=== PATIENT | male | born 1945 | race African-American/Black ===

== ENCOUNTER 2016-07-10 00:29 | Inpatient (IN) ==
--- NOTE | 2016-07-10 00:44 | Emergency Department Note ---
Arrival - Arrival Chief Complaint: Weakness Stated Complaint: weakness/ sob ED Nursing Triage Note: pt to [facility] via [facility] stretcher. pt c.o generalized weakness since 1600 yesterday. Mode of Arrival: Stretcher Time Seen by Provider: 07/10/16 00:42 - History of Present Illness HPI Narrative: Patient complains of weakness onset 1600 hrs. yesterday. He states that he cannot stand up or walk due to his weakness. He denies any dyspnea on exertion or chest pain. His sugars have been in the 300 range. The patient is diabetic. He denies any nausea, vomiting, chills, hematuria, hematemesis, or hematochezia. The patient has had no fever. He just feels weak. Allergies/Adverse Reactions: Allergies Allergy/AdvReac Type Severity Reaction Status Date / Time iodine Allergy DIFFICULTY Verified 07/10/16 00:38 SWALLOWING Shellfish Allergy DIFFICULTY Verified 07/10/16 00:38 SWALLOWING Review of System - Review of System 12 point system: reviewed and no additional remarkable complaints except as stated Medical,Surgical,& Family Hx - Medical History Cardio: History of: Hypertension Endocrine: History of: Diabetes Mellitus (NIDDM) Other: [facility]: [facility] - Social History Smoking Status: Never smoker Frequency of Alcohol Use: None Type of Drug Use: None Exam Physical Examination: General: Patient is well-developed and well-nourished with no acute distress noted. HEENT: The extraocular muscles are intact. Oropharynx is moist. There is no erythema or exudate. The tympanic membranes are shiny bilaterally. Neck: There is no adenopathy. Full range of motion is noted without pain. The trachea is midline. No JVD is present. Lungs: There is normal excursion of the chest with the lungs sounding clear bilaterally. No subcostal retractions are present. There is no point tenderness present. Heart: The heart has a regular rate and rhythm with no gallops or murmurs. Abdomen: The abdomen is nontender and nondistended with no rebound, guarding, or masses. Bowel sounds are normal. Back: The back demonstrates a normal appearance with no evidence of trauma. Genitourinary: Not examined. Extremities: The extremities demonstrate no clubbing, cyanosis, or edema. The visualized range of motion is normal. They appear atraumatic. Neuro: Cranial nerves II through XII are checked and intact. There is no focal motor or sensory deficit seen in the extremities. Skin: Skin is warm and dry with no evidence of rash. Vital Signs: Vital Signs Temperature 98.3 F 07/10/16 00:29 Pulse Rate 117 H 07/10/16 00:29 Respiratory Rate 20 07/10/16 00:47 Blood Pressure 120/58 07/10/16 00:29 Course - Consultations Consultation #1: Dr. Renny Mariano will evaluate and admit the patient. Time: 01:41 Results - Labs CBC & BMP: 07/10/16 00:40 07/10/16 00:40 Lab Results: I have reviewed the patients labs Labs: Lab Results WBC 18.1 T/CUMM (4-12) H 07/10/16 00:40 RBC 3.00 MC/CUMM (3.8-5.5) L 07/10/16 00:40 Hgb 9.7 GM/DL (14.0-18.0) L 07/10/16 00:40 Hct 30.6 VOL% (42.0-52.0) L 07/10/16 00:40 MCV 102.0 FL (87-102) 07/10/16 00:40 MCH 32 PG (27-34) 07/10/16 00:40 MCHC 31.7 GM/DL (32-36) L 07/10/16 00:40 RDW 12.5 % (9.3-17.3) 07/10/16 00:40 Plt Count 178 T/CUMM (130-400) 07/10/16 00:40 MPV 10.4 FL (9.6-12.0) 07/10/16 00:40 Neut % (Auto) 90.3 % (38.7-73.9) H 07/10/16 00:40 Lymph % (Auto) 2.9 % (21.2-54.2) L 07/10/16 00:40 [place] % (Auto) 5.2 % (1.7-12.7) 07/10/16 00:40 Eos % (Auto) 0.2 % (0.00-10.9) 07/10/16 00:40 Baso % (Auto) 0.2 % (0.0-0.8) 07/10/16 00:40 Neut # (Auto) 16.4 10*3/uL (1.4-7.4) H 07/10/16 00:40 Lymph # (Auto) 0.5 10*3/uL (1.4-4.0) L 07/10/16 00:40 [place] # (Auto) 0.9 10*3/uL (0.11-0.8) H 07/10/16 00:40 Eos # (Auto) 0.0 10*3/uL (0.0-0.87) 07/10/16 00:40 Baso # (Auto) 0.0 10*3/uL (0.0-0.2) 07/10/16 00:40 Immature Gran % 1.2 % 07/10/16 00:40 Nucleated RBC % 0.0 /100WBC 07/10/16 00:40 Immature Gran # 0.21 # 07/10/16 00:40 Nucleated RBCs # 0.00 10*3/uL 07/10/16 00:40 Sodium 145 MMOL/L (136-145) 07/10/16 00:40 Potassium 3.8 MMOL/L (3.5-5.1) 07/10/16 00:40 Chloride 107 MMOL/L (98-107) 07/10/16 00:40 Carbon Dioxide 26 MMOL/L (21-32) 07/10/16 00:40 Anion Gap 15.8 MMOL/L (5.0-15.0) H 07/10/16 00:40 BUN 16 MG/DL (7-18) 07/10/16 00:40 Creatinine 1.30 MG/DL (0.70-1.30) 07/10/16 00:40 GFR Calculation 81 ML/MIN 07/10/16 00:40 BUN/Creatinine Ratio 12.00 RATIO (6.00-20.00) 07/10/16 00:40 Glucose 321 MG/DL (74-106) H 07/10/16 00:40 Calculated Osmolality 300.7 MOS/KG (273-304) 07/10/16 00:40 Calcium 8.1 MG/DL (8.5-10.1) L 07/10/16 00:40 Magnesium 1.2 MG/DL (1.8-2.4) L 07/10/16 00:40 - Diagnostic Findings Procedure: Chest x-ray: image reviewed by me (Left lower lobe pneumonia) Disposition Clinical Impression: Left lower lobe pneumonia Case discussed with: patient, patient's family Disposition: Still a Patient Condition: Stable Time of Disposition: 01:41
[2016-07-10 01:29] LABS: Calcium 8.1 MG/DL (8.5-10.1); Magnesium 1.2 MG/DL (1.8-2.4); Osmolality,Calculated 300.7 MOS/KG (273-304); Potassium 3.8 MMOL/L (3.5-5.1)
[2016-07-10 01:35] LABS: Basophils % 0.2 % (0.0-0.8); Eosinophils % 0.2 % (0.00-10.9); Hematocrit 30.6 VOL% (42.0-52.0); Hemoglobin 9.7 GM/DL (14.0-18.0); Immature Granulocytes % 1.2 %; Immature Granulocytes Absolute 0.21 #; Lymphocytes # 0.5 10*3/uL (1.4-4.0); Lymphocytes % 2.9 % (21.2-54.2); Mean Corpuscular HGB Conc 31.7 GM/DL (32-36); Mean Corpuscular Hemoglobin 32 PG (27-34); Mean Platelet Volume 10.4 FL (9.6-12.0); Monocytes # 0.9 10*3/uL (0.11-0.8); Monocytes % 5.2 % (1.7-12.7); Neutrophils # 16.4 10*3/uL (1.4-7.4); Neutrophils % 90.3 % (38.7-73.9); Platelet Count 178 T/CUMM (130-400); Red Cell Distribution Width 12.5 % (9.3-17.3); White Blood Count 18.1 T/CUMM (4-12)
[2016-07-10] MEDS ORDERED: ACETAMINOPHEN 325 MG TABLET PO PRN (01:39)
[2016-07-10] MEDS ORDERED: ONDANSETRON 4 MG/2 ML VIAL IV PRN (01:39)
[2016-07-10] MEDS ORDERED: ZALEPLON 5 MG CAPSULE PO PRN (01:39)
[2016-07-10] MEDS ORDERED: ALBUTEROL/IPRATROPIUM 3 ML NEB RESP TX PRN (01:39)
[2016-07-10] MEDS ORDERED: DOCUSATE SODIUM 100 MG CAPSULE PO PRN (01:39)
--- NOTE | 2016-07-10 01:50 | Hospitalist History & Physical ---
Assessment and Plan (1) Left lower lobe pneumonia Status: Acute Assessment and plan: Admitted to the hospitalist service as an inpatient. Start Levaquin and duo nebs. Follow-up sputum and blood cultures. Current Visit: Yes Qualifiers: Pneumonia type: due to unspecified organism Qualified Code(s): J18.1 - Lobar pneumonia, unspecified organism (2) HTN (hypertension) Status: Acute Current Visit: Yes (3) DM2 (diabetes mellitus, type 2) Status: Acute Assessment and plan: Sliding scale insulin with Accu-Cheks. Continue home medications. Current Visit: Yes (4) Hypomagnesemia Status: Acute Assessment and plan: Oral and IV replacement ordered Current Visit: Yes History of Present Illness Chief complaint: weakness, cough History of present illness: Mr. Wilson is a 70 year old male with complains of weakness onset 1600 hrs. yesterday. He states that he cannot stand up or walk due to his weakness. He denies any dyspnea on exertion or chest pain. His sugars have been in the 300 range. The patient is diabetic. He denies any nausea, vomiting, chills, hematuria, hematemesis, or hematochezia. The patient has had no fever. He reports cold sx's for approx 1 week. He has had a cough without sputum production. He sees Dr. Cleary for PCP- not on dialysis. He has audible rhonchi. His daughter is with him in the ER. Allergies Allergy/AdvReac Type Severity Reaction Status Date / Time iodine Allergy DIFFICULTY Verified 07/10/16 00:38 SWALLOWING Shellfish Allergy DIFFICULTY Verified 07/10/16 00:38 SWALLOWING Medical,Surgical,& Family Hx - Medical History Cardio: History of: Hypertension Endocrine: History of: Diabetes Mellitus (NIDDM) Other: History of: Cancer (lymphoma , in [facility]) - Family History Family History: Reports;: Family Diabetes, Family Hypertension - Social History Smoking Status: Never smoker Frequency of Alcohol Use: None Type of Drug Use: None Lives With:: Alone Functional capacity: independent ambulation 12 point system: reviewed and no additional remarkable complaints except as stated - Constitutional Constitutional: Present: fatigue, lethargy, malaise - Respiratory Respiratory: Present: cough Exam - Constitutional Vitals: Period Temp Pulse Resp BP Sys/Holland Pulse Ox Last 24 Hr 98.3 F 117 20-22 120/58 General appearance: mild distress Exam: Constitutional System: Mild distress. No tremulousness. Ill-appearing Head: Normocephalic, atraumatic. Ears, Nose and Throat System: No pain or tenderness. No epistaxis or discharge Eyes System: Pupils equal, round, and reactive. Extraocular muscles intact. Neck: Supple, without adenopathy, No jugular venous distention. No thyromegaly, neck mass, or prior surgery apparent. Respiratory System: Chest with rhonchi left greater than right. Cardiovascular System: Heart with tachycardic rate and normal rhythm. No murmur. GI System: Abdomen soft, nontender. Normo active bowel sounds present. Musculoskeletal System: limbs with no pedal edema. Full distal pulses. Neurological System: No discernable sensory deficit. No aphasia Psychiatric System: Conversation is rational Results - Labs CBC & BMP: 07/10/16 00:40 07/10/16 00:40 Lab Results: I have reviewed the past 24 hour labs - Diagnostic Findings Procedure: CT - chest: image reviewed by me, report reviewed by me
[2016-07-10 02:12] LABS: Band Neutrophils 5 % (0-10); Lymphocytes 1 % (20-55); Platelet Estimate Normal; Segmented Neutrophils 88 % (50-85); Total Cells Counted 100
[2016-07-10] MEDS ORDERED: DEXTROSE 50% 25 GM/50 ML VIAL IV PRN (02:59)
[2016-07-10] MEDS ORDERED: MAGNESIUM SULF RIDER 4 GM in PREMIX 1 EACH IV ONE (02:59)
[2016-07-10] MEDS ORDERED: GLUCAGON 1 MG VIAL IM PRN (02:59)
[2016-07-10] MEDS: LEVOFLOXACIN INJ 750 MG in PREMIX 1 EACH IV SCH (03:42)
[2016-07-10 05:15] LABS: Basophils % 0.1 % (0.0-0.8); Hematocrit 27.9 VOL% (42.0-52.0); Hemoglobin 8.9 GM/DL (14.0-18.0); Immature Granulocytes % 1.1 %; Immature Granulocytes Absolute 0.23 #; Lymphocytes # 0.8 10*3/uL (1.4-4.0); Lymphocytes % 3.7 % (21.2-54.2); Mean Corpuscular HGB Conc 31.9 GM/DL (32-36); Mean Corpuscular Hemoglobin 32 PG (27-34); Mean Corpuscular Volume 100.7 FL (87-102); Mean Platelet Volume 10.5 FL (9.6-12.0); Monocytes # 1.1 10*3/uL (0.11-0.8); Monocytes % 5.2 % (1.7-12.7); Neutrophils # 18.8 10*3/uL (1.4-7.4); Neutrophils % 89.9 % (38.7-73.9); Platelet Count 190 T/CUMM (130-400); Red Blood Count 2.77 MC/CUMM (3.8-5.5); Red Cell Distribution Width 12.7 % (9.3-17.3); White Blood Count 20.9 T/CUMM (4-12)
[2016-07-10 05:42] LABS: Band Neutrophils 1 % (0-10); Hypochromasia 1+; Lymphocytes 3 % (20-55); Ovalocytes Slight; Platelet Estimate Normal; Segmented Neutrophils 94 % (50-85); Total Cells Counted 100
--- NOTE | 2016-07-10 07:15 | XRay Report ---
Portable chest Date: 07/10/2016 Clinical history: Chest pain, shortness of breath Comparison: 05/30/2014 Technique: Portable AP sitting chest Findings: The heart is slightly larger in size with stable left subclavian venous access catheter. Persistent minimal relative elevation of the right hemidiaphragm with progressive atelectasis/infiltration especially at the left lung base. Stable mediastinum with degenerative changes. Impression: Progressive atelectasis/infiltration especially at the left lung base. Persistent minimal relative elevation of the right hemidiaphragm. Follow-up chest x-ray recommended to document clearing. PROCEDURE INTERPRETED AT [facility] DEPARTMENT OF RADIOLOGY Final Report Signed by: Dr. Sue Hernandez
[2016-07-10] MEDS: INSULIN LISPRO 100 UNIT/ML SUBCUT SCH ×5 (08:35→21:27)
[2016-07-10] MEDS ORDERED: PANTOPRAZOLE 40 MG TABLET PO SCH (09:00)
[2016-07-10] MEDS: glipiZIDE 10 MG TABLET PO SCH ×2 (09:04→21:26)
[2016-07-10] MEDS: PANTOPRAZOLE 40 MG TABLET PO SCH (09:05)
[2016-07-10] MEDS: MONTELUKAST 10 MG TABLET PO SCH (09:05)
[2016-07-10] MEDS: ENOXAPARIN 40 MG/0.4 ML SYRINGE SUBCUT SCH (09:05)
[2016-07-10] MEDS: MAGNESIUM OXIDE 400 MG TABLET PO SCH ×3 (09:05→21:26)
[2016-07-10] MEDS: GABAPENTIN 300 MG CAPSULE PO SCH ×3 (09:05→21:25)
[2016-07-10] MEDS: CARVEDILOL 25 MG TABLET PO SCH ×2 (09:05→21:25)
[2016-07-10] MEDS: ISOSORBIDE MONONITRATE 30 MG TABLET PO SCH (09:05)
[2016-07-10] MEDS: guaiFENesin/DM ER 600-30 MG TABLET PO PRN (18:36)
[2016-07-10] MEDS: PRAVASTATIN 20 MG TABLET PO SCH (21:26)
[2016-07-10] MEDS: rOPINIRole 1 MG TABLET PO SCH (21:26)
[2016-07-11] MEDS: ENOXAPARIN 40 MG/0.4 ML SYRINGE SUBCUT SCH (08:46)
[2016-07-11] MEDS: LEVOFLOXACIN INJ 750 MG in PREMIX 1 EACH IV SCH (08:47)
[2016-07-11] MEDS: PANTOPRAZOLE 40 MG TABLET PO SCH (08:47)
[2016-07-11] MEDS: INSULIN LISPRO 100 UNIT/ML SUBCUT SCH ×4 (08:47→21:49)
[2016-07-11] MEDS: GABAPENTIN 300 MG CAPSULE PO SCH ×3 (08:48→21:47)
[2016-07-11] MEDS: guaiFENesin/DM ER 600-30 MG TABLET PO PRN (08:48)
[2016-07-11] MEDS: CARVEDILOL 25 MG TABLET PO SCH ×2 (08:48→21:47)
[2016-07-11] MEDS: MAGNESIUM OXIDE 400 MG TABLET PO SCH ×3 (08:48→21:47)
[2016-07-11] MEDS: ISOSORBIDE MONONITRATE 30 MG TABLET PO SCH (08:48)
[2016-07-11] MEDS: MONTELUKAST 10 MG TABLET PO SCH (08:48)
[2016-07-11] MEDS: glipiZIDE 10 MG TABLET PO SCH ×2 (08:48→21:47)
--- NOTE | 2016-07-11 08:54 | XRay Report ---
XR chest 2V Date: 07/11/2016 4:00 AM History: Shortness of breath, pneumonia Comparison: 07/10/2016 Technique: PA and lateral chest Findings: The heart is normal in size with stable left subclavian venous access catheter. Progressive atelectasis/infiltration right lower lung zone with relative elevation of the right hemidiaphragm. Reduced atelectasis/infiltration at left lung base. Stable mediastinum and osseous structures. Impression: Progressive atelectasis/infiltration in the right mid to lower lung zone with relative elevation of the right hemidiaphragm. Reduced atelectasis/infiltration at left lung base. PROCEDURE INTERPRETED AT [facility] DEPARTMENT OF RADIOLOGY Final Report Signed by: Dr. Sue Hernandez
[2016-07-11 15:23] LABS: Free T4 (Free Thyroxine) 1.33 NG/DL (0.76-1.46); Thyroid Stimulating Hormone 0.639 uIU/ml (0.358-3.74)
[2016-07-11] MEDS ORDERED: MAGNESIUM SULF RIDER 2 GM in PREMIX 1 EACH IV PRN (15:33)
[2016-07-11] MEDS ORDERED: MAGNESIUM SULF RIDER 4 GM in PREMIX 1 EACH IV PRN (15:33)
--- NOTE | 2016-07-11 15:34 | Hospitalist Progress Note ---
<Diana Coreas - Last Filed: 07/11/16 15:31> Assessment and Plan - Time spent with patient Time spent with patient: Less than 30 minutes (1) Left lower lobe pneumonia Status: Acute Assessment and plan: 07/11/16 xr showing progressive atelectasis in right lung w elevation of the right hemidiaphragm and reduced atelectasis in the left. pt is on levaquin and breathing treatments. Current Visit: Yes Qualifiers: Pneumonia type: due to unspecified organism Qualified Code(s): J18.1 - Lobar pneumonia, unspecified organism (2) HTN (hypertension) Status: Acute Assessment and plan: BP running in high 90s and low 100s. will cont to monitor. Current Visit: Yes (3) DM2 (diabetes mellitus, type 2) Status: Acute Assessment and plan: blood sugars running 283-304 and his HgbA1C was greater than 9. will need to address his home meds. will discuss this w dr Miller. cont SSI Current Visit: Yes (4) Hypomagnesemia Status: Acute Assessment and plan: pt on po mag daily started in ED. will recheck labs in am. mag replacement protocol also in place. Current Visit: Yes Hospitalist: Subjective Interval history: pt feels better today. no fevers. eating well. denies cough since last night. pt states he has seen CAYLA roman for dr gonzalez at one time. Exam - Constitutional Vitals: Period Temp Pulse Resp BP Sys/Holland Pulse Ox Last 24 Hr 96.9 F-99 F 90-100 20-24 90-106/51-60 91-100 Exam: 70AAM, NAD, alert and oriented chest clear cv rrr abd soft, nt ext no edema Results - Labs CBC & BMP: 07/10/16 04:28 07/10/16 00:40 Lab Results: I have reviewed the past 24 hour labs - Diagnostic Findings Procedure: Chest x-ray: report reviewed by me (progression in right, resolution to left) Quality Measures - Stroke Symptom Onset Unknown: No <Kat Miller - Last Filed: 07/11/16 15:45> Hospitalist: Subjective Interval history: Patient apparently has a history of NHL in 5year-remission.We will hold Isosorbide for now due to borderline bp, get Lipids, cultures, A1C levels, TSH and start Lantus 10units qhs and follow response Exam - Constitutional Vitals: Period Temp Pulse Resp BP Sys/Holland Pulse Ox Last 24 Hr 96.9 F-99 F 90-100 20-24 90-106/51-60 91-100 Results - Labs CBC & BMP: 07/10/16 04:28 07/10/16 00:40
[2016-07-11] MEDS: CLINDAMYCIN INJ 300 MG in PREMIX 1 EACH IV SCH ×2 (16:23→21:50)
--- NOTE | 2016-07-11 16:24 | Pulmonology Consult Note ---
History of Present Illness Chief complaint: Pneumonia History of present illness: Walt Mary, ANP-BC, GNP-BC, acting as scribe for Dr. Mikey Oliva Mr. Wilson is a 70-year-old -[place] male who we have been asked to see in pulmonary consultation for evaluation and treatment. The request for consultation was made by Dr. Miller. This patient is followed from a primary care standpoint by Dr. Cleary. He has been seen by SHAHRAM Pillai, nurse practitioner, on one occasion 06/12/[address] Cleary for cough. Patient states he was in his usual state of health until Friday (2 days ago). At that time he had acute onset of increased shortness of breath and productive cough. He had associated chills but denies any known fever. He presented to the emergency room for evaluation and was found to have an acute left lower lung infiltrate compatible with pneumonia. He was subsequently admitted to the hospitalist services. He denies any cardiac angina or palpitations. No change in bowel or bladder habits. No dysphasia or reflux. His cough improved with the addition of Singulair. It was felt that his cough was a wheeze equivalent. No TIA symptoms or syncope. No bleeding from any site. All other systems were reviewed and were negative. Allergies: Iodine, shellfish Past medical history: Lymphoma (in remission). Chronic renal failure (stage III , mild). Diabetes mellitus. Restless leg syndrome. Hypertension. Family history: Positive for diabetes and hypertension Social history: He is . He is a lifetime non-smoker. Has a 12th grade education. Surgical history: Noncontributory Past procedures: Pulmonary function test on 06/12/[address] Oliva showed oxygen saturation 98% on room air, small airways disease, no clear-cut improvement after inhaled bronchodilators, suggested severe restrictive disease , DLCO 45, DL/VA 96, and severe decrease in maximum voluntary ventilation. Chest x-ray. Done 07/11/2016. My interpretation. The heart size is top normal. Pulmonary arteries are top normal. Mediastinum is not enlarged. There is no hilar adenopathy. There is an acute left lower lung infiltrate compatible with pneumonia as well as atelectasis on the left and the right. Microbiology: Influenza screen was negative. Blood cultures are negative at day 1. Laboratory: White count has risen to 20,900 with 89.9% segs, 3.7% lymphs, 5.2% monos; H&H 8.9/27.9 with normal indices and normal red blood cell distribution width; platelet count 190,000; creatinine 1.30, BUN 16, sodium 145, potassium 3.8, magnesium 1.3 (hypomagnesemia), calcium 8.1 (hypocalcemia), BNP 44, hemoglobin A1c elevated at 9.7% showing poor control of his diabetes mellitus; TSH and free T4 normal at 0.639 1.33 respectively. Home Medications Medication Instructions Recorded Confirmed Type Carvedilol [Carvedilol] 25 mg PO BID 07/10/16 07/10/16 History Gabapentin Cap/Tab [Neurontin 300 mg PO TID 07/10/16 07/10/16 History Cap/Tab] Isosorbide Mononitrate [Imdur] 30 mg PO DAILY 07/10/16 07/10/16 History Magnesium Oxide 400 mg PO TID 07/10/16 07/10/16 History Montelukast Tab [Singulair Tab] 10 mg PO DAILY 07/10/16 07/10/16 History Omeprazole [Omeprazole] 20 mg PO TID W/MEALS 07/10/16 07/10/16 History Pioglitazone HCl 15 mg PO DAILY 07/10/16 07/10/16 History Pravastatin [Pravachol] 20 mg PO BEDTIME 07/10/16 07/10/16 History Ropinirole HCl [Ropinirole HCl] 2 mg PO BEDTIME 07/10/16 07/10/16 History glipiZIDE [Glipizide] 15 mg PO BID 07/10/16 07/10/16 History Allergies Allergy/AdvReac Type Severity Reaction Status Date / Time iodine Allergy DIFFICULTY Verified 07/10/16 00:38 SWALLOWING Shellfish Allergy DIFFICULTY Verified 07/10/16 00:38 SWALLOWING Exam (Pulmonay) H&P - Constitutional Vitals: Period Temp Pulse Resp BP Sys/Holland Pulse Ox Last 24 Hr 96.9 F-99 F 90-100 20-24 92-106/51-60 91-98 Exam: Psych: Oriented x 3; a pleasant and cooperative patient who is acutely ill appearing HEENT: Pupils, irises, sclera, conjunctiva, and eyelids are normal. The face is symmetrical without rash or masses. Lips, tongue, buccal mucosa, soft and hard palates, and pharynx are WNL Neck: Symmetrical. Thyroid was not palpated. Lymphatics: No submandibular, cervical, or supraclavicular adenopathy Chest: Symmetrical with bilateral rhonchi left greater than right CV: Regular without murmur, rub, or gallop Arterial: Carotids with a good upstroke. There is no bruit. Upper extremity pulses are palpable. Lower extremity pulses are non-palpable, but I see no evidence of ischemia. Venous: Exam of the neck, upper, and lower extremities is normal Abd: No appreciable organomegaly, masses, tenderness, or bruit; Bowel sounds are positive 4; The aorta was not palpated /Rectal: Deferred Extremities: No clubbing, cyanosis, edema, or obvious DVT; bilateral MARILYN hose are in use Skin: No cancerous or infectious lesions of the exposed, examined skin; the perineal area was not examined M/S: Age appropriate loss of the normal curvature of the cervical, thoracic, and lumbar spine Neurological: Cranial nerves are intact, Long tract motor function is intact; Sensory exam was not done; gait was not tested. The remainder of the exam was noncontributory. Impression: #1: Acute left lower lung infiltrate compatible with pneumonia and probable right lower lung infiltrate as well with associated atelectasis #2: History of lymphoma. Now in remission. #3: Hypomagnesemia #4: Hypocalcemia #5: Hypertension #6: Diabetes mellitus #7: History of wheeze equivalent cough #8: Chronic renal failure #9: See past history Plan: #1: Agree with Levaquin. Will add Cleocin pending any new information becomes available. Note, the patient did have a low-grade temperature this morning. #2: Check cold agglutinins #3: Check Legionella #4: Check sputum for Gram stain, culture, and sensitivity #5: Inhalation therapy with DuoNeb's 4 times daily and as needed #6: Mucinex 600 mg p.o. twice daily #7: See orders We appreciate this consult and will follow along with you. Medical,Surgical,& Family Hx - Medical History Cardio: History of: Hypertension HEENT: History of: Eye Problem (wears glasses) Endocrine: History of: Diabetes Mellitus (NIDDM) Respiratory: History of: Pneumonia Gastrointestinal: History of: GERD Other: History of: Cancer (lymphoma , in [facility]) - Surgical History HEENT Surgeries: Patient denies: Eye Surgery, Tonsilectomy & Adenoidectomy Abdominal Surgeries: Surgical HX of: Colonoscopy, EGD - Family History Family History: Reports;: Family Diabetes, Family Hypertension - Social History Smoking Status: Never smoker Frequency of Alcohol Use: None Type of Drug Use: None Results - Labs CBC & BMP: 07/10/16 04:28 07/10/16 00:40 Quality Measures - Stroke Symptom Onset Unknown: No
[2016-07-11] MEDS: ALBUTEROL/IPRATROPIUM 3 ML NEB RESP TX SCH ×2 (19:20→23:44)
[2016-07-11] MEDS: PRAVASTATIN 20 MG TABLET PO SCH (21:47)
[2016-07-11] MEDS: rOPINIRole 1 MG TABLET PO SCH (21:47)
[2016-07-11] MEDS: INSULIN GLARGINE 100 UNIT/ML SUBCUT SCH (21:49)
[2016-07-12] MEDS: ALBUTEROL/IPRATROPIUM 3 ML NEB RESP TX SCH ×6 (03:20→23:35)
[2016-07-12 03:36] LABS: Apearance,Urine CLEAR (Clear); Bilirubin,Urine Negative (Negative); Blood, Urine Negative (Negative); Glucose,Urine (UA) >=500 mg/dL (Negative); Ketones,Urine Negative (Negative); Mucus,Urine Occasional /LPF (Occasional); Nitrite,Urine Negative (Negative); Protein,Urine Negative; Urine Color Yellow (Yellow); Urine Specific Gravity 1.014 (1.001-1.035); Urine Urobilinogen < 2.0 EU/DL (0.2-1.0); WBC,Urine <1 /HPF (0-6)
[2016-07-12] MEDS: CLINDAMYCIN INJ 300 MG in PREMIX 1 EACH IV SCH ×4 (05:28→21:31)
[2016-07-12 06:57] LABS: Basophils % 0.1 % (0.0-0.8); Eosinophils # 0.2 10*3/uL (0.0-0.87); Eosinophils % 1.6 % (0.00-10.9); Hematocrit 25.6 VOL% (42.0-52.0); Hemoglobin 7.9 GM/DL (14.0-18.0); Immature Granulocytes % 0.7 %; Immature Granulocytes Absolute 0.07 #; Lymphocytes # 1.3 10*3/uL (1.4-4.0); Lymphocytes % 12.4 % (21.2-54.2); Mean Corpuscular HGB Conc 30.9 GM/DL (32-36); Mean Corpuscular Hemoglobin 32 PG (27-34); Mean Corpuscular Volume 102.4 FL (87-102); Mean Platelet Volume 10.5 FL (9.6-12.0); Monocytes # 0.6 10*3/uL (0.11-0.8); Monocytes % 5.4 % (1.7-12.7); Neutrophils # 8.3 10*3/uL (1.4-7.4); Neutrophils % 79.8 % (38.7-73.9); Platelet Count 176 T/CUMM (130-400); Red Cell Distribution Width 12.4 % (9.3-17.3); White Blood Count 10.4 T/CUMM (4-12)
[2016-07-12 07:28] LABS: Calcium 7.8 MG/DL (8.5-10.1); Magnesium 1.9 MG/DL (1.8-2.4); Osmolality,Calculated 297.4 MOS/KG (273-304); Potassium 4.4 MMOL/L (3.5-5.1); Risk Ratio 4.1
[2016-07-12] MEDS: INSULIN LISPRO 100 UNIT/ML SUBCUT SCH ×4 (08:32→21:31)
[2016-07-12] MEDS ORDERED: ISOSORBIDE MONONITRATE 30 MG TABLET PO SCH (09:00)
[2016-07-12] MEDS: GABAPENTIN 300 MG CAPSULE PO SCH ×3 (09:09→21:37)
[2016-07-12] MEDS: MAGNESIUM OXIDE 400 MG TABLET PO SCH ×3 (09:09→21:30)
[2016-07-12] MEDS: CARVEDILOL 25 MG TABLET PO SCH ×2 (09:09→21:30)
[2016-07-12] MEDS: glipiZIDE 10 MG TABLET PO SCH ×2 (09:10→21:30)
[2016-07-12] MEDS: PANTOPRAZOLE 40 MG TABLET PO SCH (09:10)
[2016-07-12] MEDS: MONTELUKAST 10 MG TABLET PO SCH (09:10)
[2016-07-12] MEDS: LEVOFLOXACIN INJ 750 MG in PREMIX 1 EACH IV SCH (09:11)
[2016-07-12] MEDS: ENOXAPARIN 40 MG/0.4 ML SYRINGE SUBCUT SCH (09:11)
--- NOTE | 2016-07-12 10:51 | Pulmonology Progress Note ---
Pulmonary - PN: Subj Interval history: This is a 70-year-old black male who was seen in pulmonary consultation on 2016. Impressions are. #1: Acute left lower lung infiltrate compatible with pneumonia and probable right lower lung infiltrate as well with associated atelectasis #2: History of lymphoma. Now in remission. #3: Hypomagnesemia #4: Hypocalcemia #5: Hypertension #6: Diabetes mellitus #7: History of wheeze equivalent cough #8: Chronic renal failure #9: See past history 07/12/2016. Today's chest x-ray shows that the patient has a bibasilar infiltrate. He says his breathing is markedly improved. Cold agglutinins are negative. No other tests concerning infection have been reported. Electrolytes normal. Creatinine is 1.3 with a BUN of 17. Urine shows no evidence of infection. White blood cell count is dropped from 20,900-10,400 with 80 segs and 12 lymphocytes. H&H is 7.9/25.6. Platelets are 176,000. Physical exam. Vital signs. See below. Had fever last night. Psychiatric. Oriented 3 Neurologic. Cranial nerves are intact. Patient moves all fours. Chest. Slight large airway congestion. No wheezing Heart. No gallop Abdomen. Nondistended. Positive bowel sounds Lower extremities. Chronic venous stasis changes with resolving edema. No evidence of deep venous thrombophlebitis Neck. Symmetrical. No meningismus. Lymphatics. No submandibular cervical supraclavicular or epitrochlear adenopathy. The remainder the physical exam is negative Plan: #1: 07/11/2016. Agree with Levaquin. Will add Cleocin pending any new information becomes available. Note, the patient did have a low-grade temperature this morning. #2: Check cold agglutinins. 07/12/2016, negative #3: Check Legionella #4: Check sputum for Gram stain, culture, and sensitivity #5: Inhalation therapy with DuoNeb's 4 times daily and as needed #6: Mucinex 600 mg p.o. twice daily #7: See orders 8. 07/12/2016. Follow-up chest x-ray on Friday. See orders. See above. Exam (Progress Note) - Constitutional Vitals: Period Temp Pulse Resp BP Sys/Holland Pulse Ox Last 24 Hr 97.4 F-100.2 F 81-96 16- 100-117/54-65 90-99 Results - Labs CBC & BMP: 07/12/16 05:17 07/12/16 05:17
--- NOTE | 2016-07-12 18:06 | Hospitalist Progress Note ---
Assessment and Plan - Time spent with patient Time spent with patient: Less than 30 minutes (1) Left lower lobe pneumonia Status: Acute Assessment and plan: 07/11/16 xr showing progressive atelectasis in right lung w elevation of the right hemidiaphragm and reduced atelectasis in the left. pt is on levaquin and breathing treatments. 07/12/16 pt feeling better. no xr today. will get an xr in am and if looks ok should be able to dc. Current Visit: Yes Qualifiers: Pneumonia type: due to unspecified organism Qualified Code(s): J18.1 - Lobar pneumonia, unspecified organism (2) HTN (hypertension) Status: Acute Assessment and plan: BP running in high 90s and low 100s. will cont to monitor. 07/12/16 BP under good control Current Visit: Yes (3) DM2 (diabetes mellitus, type 2) Status: Acute Assessment and plan: blood sugars running 283-304 and his HgbA1C was greater than 9. will need to address his home meds. will discuss this w dr Miller. cont SSI 07/12/16 blood sugars are running a little high, 184-321. pt may need to have his meds adjusted. will discuss this w dr Miller. Current Visit: Yes (4) Hypomagnesemia Status: Acute Assessment and plan: pt on po mag daily started in ED. will recheck labs in am. mag replacement protocol also in place. 07/12/16 hypomag resolved Current Visit: Yes Hospitalist: Subjective Interval history: pt feels much better. barely coughing and no complaints of chest discomfort. he is eating and drinking well and ambulating some in room. Exam - Constitutional Vitals: Period Temp Pulse Resp BP Sys/Holland Pulse Ox Last 24 Hr 97.4 F-100.2 F 81-100 16-22 100-122/54-65 90-100 Exam: 70AAM, NAD, alert and oriented chest clear cv rrr abd soft, nt ext no edema Results - Labs CBC & BMP: 07/12/16 05:17 07/12/16 05:17 Lab Results: I have reviewed the past 24 hour labs Quality Measures - Stroke Symptom Onset Unknown: No
[2016-07-12] MEDS: INSULIN GLARGINE 100 UNIT/ML SUBCUT SCH (21:30)
[2016-07-12] MEDS: rOPINIRole 1 MG TABLET PO SCH (21:30)
[2016-07-12] MEDS: PRAVASTATIN 20 MG TABLET PO SCH (21:30)
[2016-07-13] MEDS: CLINDAMYCIN INJ 300 MG in PREMIX 1 EACH IV SCH ×2 (03:48→10:03)
[2016-07-13] MEDS: ALBUTEROL/IPRATROPIUM 3 ML NEB RESP TX SCH ×4 (03:54→14:50)
[2016-07-13 05:46] LABS: Basophils % 0.2 % (0.0-0.8); Eosinophils # 0.2 10*3/uL (0.0-0.87); Eosinophils % 1.7 % (0.00-10.9); Hematocrit 26.3 VOL% (42.0-52.0); Hemoglobin 8.4 GM/DL (14.0-18.0); Immature Granulocytes % 1.1 %; Immature Granulocytes Absolute 0.12 #; Lymphocytes # 1.3 10*3/uL (1.4-4.0); Lymphocytes % 11.9 % (21.2-54.2); Mean Corpuscular HGB Conc 31.9 GM/DL (32-36); Mean Corpuscular Hemoglobin 32 PG (27-34); Mean Corpuscular Volume 98.9 FL (87-102); Mean Platelet Volume 10.5 FL (9.6-12.0); Monocytes # 0.6 10*3/uL (0.11-0.8); Monocytes % 5.4 % (1.7-12.7); Neutrophils % 79.7 % (38.7-73.9); Platelet Count 173 T/CUMM (130-400); Red Blood Count 2.66 MC/CUMM (3.8-5.5); Red Cell Distribution Width 12.3 % (9.3-17.3); White Blood Count 11.3 T/CUMM (4-12)
[2016-07-13] MEDS: INSULIN LISPRO 100 UNIT/ML SUBCUT SCH ×2 (07:25→11:50)
[2016-07-13] MEDS: glipiZIDE 10 MG TABLET PO SCH (08:05)
[2016-07-13] MEDS: CARVEDILOL 25 MG TABLET PO SCH (08:05)
[2016-07-13] MEDS: MAGNESIUM OXIDE 400 MG TABLET PO SCH ×2 (08:07→15:44)
[2016-07-13] MEDS: LEVOFLOXACIN INJ 750 MG in PREMIX 1 EACH IV SCH (08:07)
[2016-07-13] MEDS: ENOXAPARIN 40 MG/0.4 ML SYRINGE SUBCUT SCH (08:08)
[2016-07-13] MEDS: GABAPENTIN 300 MG CAPSULE PO SCH ×2 (08:08→15:44)
[2016-07-13] MEDS: PANTOPRAZOLE 40 MG TABLET PO SCH (08:09)
[2016-07-13] MEDS: MONTELUKAST 10 MG TABLET PO SCH (08:09)
--- NOTE | 2016-07-13 08:26 | Discharge Summary ---
<Diana Coreas - Last Filed: 07/13/16 08:24> Hospital Course - Hospital Course Hospital Course: 70AAM w history of lymphoma in remission, DM, HTN, and CRF admitted by hospitalist w LLL pneumonia and cough. pt was started on breathing treatments and levaquin. his wbc were normal and he was afebrile on admission. Jessie Usman [facility] saw pt for Dr Gonzalez since he is a pt of theirs. pt is feeling better and cough is improved. His blood sugars have been running high in 2-300s and HgbA1C is 9.7. His glucose control medicines have been adjusted. DC home on abx w follow up w his PCP dr poole [place] [address] gonzalez or jessie in 2wks w a CXR. dc instructions were given. - Time spent with patient Time with patient DS: Less than 30 minutes Diagnosis - Discharge Diagnosis (1) Left lower lobe pneumonia Status: Resolved (2) HTN (hypertension) Status: Chronic (3) DM2 (diabetes mellitus, type 2) Status: Chronic (4) Hypomagnesemia Status: Resolved Specialty Discharge - Follow Up or Referrals Follow up with: Jason Poole Jr., MD [Physician] - 1 Month Mikey Gonzalez MD [Physician] - 2 Weeks (with cxr) Discharge Plan - Discharge Data Disposition: Disch To Home/Self Care Condition at Discharge: Stable Discharge Diet: diabetic diet Activity: resume usual activities as tolerated Hygiene: may shower Driving: no restrictions Contact your physician if you experience:: fever over 101, Shortness of breath - Discharge Medications New Albuterol/Ipratropium Neb [Duoneb] 3 ml RESP TX RT Q4H Levofloxacin Tab [Levaquin Tab] 750 mg PO DAILY #7 tablet Acetaminophen Tab [Tylenol Tab] 325 mg PO Q4H PRN #0 tablet PRN Reason: fever, headache/body aches Docusate Sodium Cap [Colace Cap] 100 mg PO BID PRN #0 capsule PRN Reason: Constipation Insulin Glargine [Lantus] 10 unit SUBCUT BEDTIME #10 unit guaiFENesin/DM ER 600-30 [Mucinex Dm 600-30 MG] 1 tablet PO BID PRN #0 tablet PRN Reason: Congestion Continue Montelukast Tab [Singulair Tab] 10 mg PO DAILY Magnesium Oxide 400 mg PO TID Pravastatin [Pravachol] 20 mg PO BEDTIME Omeprazole 20 mg PO TID W/MEALS Carvedilol 25 mg PO BID Ropinirole HCl 2 mg PO BEDTIME Gabapentin Cap/Tab [Neurontin Cap/Tab] 300 mg PO TID Pioglitazone HCl 15 mg PO DAILY glipiZIDE [Glipizide] 15 mg PO BID Discontinued Isosorbide Mononitrate [Imdur] 30 mg PO DAILY - Follow Up or Referral Follow Up: Mikey Gonzalez MD [Physician] - 2 Weeks (with cxr) Jason Poole Jr., MD [Physician] - 1 Month - Forms/Instructions Exam - Constitutional Vitals: Period Temp Pulse Resp BP Sys/Holland Pulse Ox Last 24 Hr 98.2 F-99.5 F 81-102 16-20 110-165/55-87 93-100 Discharge Results Procedures and tests throughout hospitalization: Pending Orders 07/11/16 14:07 Legionella Pneumophilia Ab Routine 07/12/16 Urine Culture Routine 07/15/16 04:00 XR chest 2V Routine CBC [Comp Blood Count Auto Diff] Routine Labs on day of discharge: Labs from last 24 hours 07/13/16 07/13/16 07/13/16 10:40 07:25 05:12 WBC 11.3 RBC 2.66 L Hgb 8.4 L Hct 26.3 L MCV 98.9 MCH 32 MCHC 31.9 L RDW 12.3 Plt Count 173 MPV 10.5 Neut % (Auto) 79.7 H Lymph % (Auto) 11.9 L Routt % (Auto) 5.4 Eos % (Auto) 1.7 Baso % (Auto) 0.2 Neut # (Auto) 9.0 H Lymph # (Auto) 1.3 L Routt # (Auto) 0.6 Eos # (Auto) 0.2 Baso # (Auto) 0.0 Immature Gran % 1.1 Nucleated RBC % 0.0 Immature Gran # 0.12 Nucleated RBCs # 0.00 POC Glucose 259 H 187 H 07/12/16 07/12/16 20:03 15:11 WBC RBC Hgb Hct MCV MCH MCHC RDW Plt Count MPV Neut % (Auto) Lymph % (Auto) Routt % (Auto) Eos % (Auto) Baso % (Auto) Neut # (Auto) Lymph # (Auto) Routt # (Auto) Eos # (Auto) Baso # (Auto) Immature Gran % Nucleated RBC % Immature Gran # Nucleated RBCs # POC Glucose 231 H 184 H Preliminary micro results at discharge 07/12/16 Unknown Urine Culture - Preliminary Urine,Voided No Growth at 24 hours. 07/10/16 01:57 Blood Culture - Preliminary Blood No growth at 3 days 07/10/16 01:47 Blood Culture - Preliminary Blood No growth at 3 days DS: Provider Date of admission: 07/10/16 01:39 Primary care physician: . No PCP Attending physician on admission: Kat Miller MD Consults: 07/10/16 03:33 Consult to Pastoral Services [CONS] Routine Comment: Pastoral Screen: Request Force Variation Equipment Tender Visit Pastoral Screen Source of Request: Patient 07/11/16 15:26 Consult to Physician [CONS] Routine Comment: Consulting Provider: Mikey Gonzalez When should Consulting Provider be notified: Now Person Notified: do Date Notified: 07/11/16 Time Notified: 16:32 Consult Notification Comment: ousmane notified do Discharging clinician: NELL Fairbanks Expected date of discharge: 07/13/16 <Kat Miller - Last Filed: 07/13/16 14:02> Hospital Course - Time spent with patient Time with patient DS: Greater than 30 minutes Discharge Plan - Discharge Data Condition at Discharge: Stable Discharge Diet: diabetic diet Activity: resume usual activities as tolerated Exam - Constitutional General appearance: no acute distress - Eye Eye exam: Present: EOMI - Respiratory Respiratory exam: Present: clear to auscultation bilaterally - Cardiovascular Cardiovascular exam: Present: regular rate and rhythm - GI/Abdominal GI/Abdominal exam: Present: normal bowel sounds - Extremities Exam Extremities exam: Present: normal inspection
--- NOTE | 2016-07-13 09:13 | Pulmonology Progress Note ---
Pulmonary - PN: Subj Interval history: This is a 70-year-old black male who was seen in pulmonary consultation on 2016. Impressions are. #1: Acute left lower lung infiltrate compatible with pneumonia and probable right lower lung infiltrate as well with associated atelectasis #2: History of lymphoma. Now in remission. #3: Hypomagnesemia #4: Hypocalcemia #5: Hypertension #6: Diabetes mellitus #7: History of wheeze equivalent cough #8: Chronic renal failure #9: See past history 07/12/2016. Today's chest x-ray shows that the patient has a bibasilar infiltrate. He says his breathing is markedly improved. Cold agglutinins are negative. No other tests concerning infection have been reported. Electrolytes normal. Creatinine is 1.3 with a BUN of 17. Urine shows no evidence of infection. White blood cell count is dropped from 20,900-10,400 with 80 segs and 12 lymphocytes. H&H is 7.9/25.6. Platelets are 176,000. 07/13/2016. Today's chest x-ray shows a residual lingular/right lower lung infiltrate. There is a small right-sided pleural effusion. There is slight elevation of the right hemidiaphragm. There are no positive cultures. Labs been reviewed. Glucoses are under good control. Patient is comfortable and denies any distress or new problems. He has no new requests. Physical exam. Vital signs. See below. Had fever last night. Psychiatric. Oriented 3 Neurologic. Cranial nerves are intact. Patient moves all fours. Chest. Slight large airway congestion. No wheezing Heart. No gallop Abdomen. Nondistended. Positive bowel sounds Lower extremities. Chronic venous stasis changes with resolving edema. No evidence of deep venous thrombophlebitis Neck. Symmetrical. No meningismus. Lymphatics. No submandibular cervical supraclavicular or epitrochlear adenopathy. The remainder the physical exam is negative Plan: #1: 07/11/2016. Agree with Levaquin. Will add Cleocin pending any new information becomes available. Note, the patient did have a low-grade temperature this morning. #2: Check cold agglutinins. 07/12/2016, negative #3: Check Legionella #4: Check sputum for Gram stain, culture, and sensitivity #5: Inhalation therapy with DuoNeb's 4 times daily and as needed #6: Mucinex 600 mg p.o. twice daily #7: See orders 8. 07/12/2016. Follow-up chest x-ray on Friday. See orders. See above. 9. 07/13/2016. See my note above. Continue present therapy. Follow-up chest x -ray on Friday Exam (Progress Note) - Constitutional Vitals: Period Temp Pulse Resp BP Sys/Holland Pulse Ox Last 24 Hr 97.4 F-99.5 F 81-102 16-20 110-165/55-87 93-100 Results - Labs CBC & BMP: 07/13/16 05:12 07/12/16 05:17 Specialty Discharge - Follow Up or Referrals Follow up with: Jason Cleary Jr., MD [Physician] - 1 Month Mikey Oliva MD [Physician] - 2 Weeks (with cxr)
--- NOTE | 2016-07-13 09:14 | XRay Report ---
Chest, 2 views History is pneumonia Comparison 07/11/2016 Mediastinal contour is unchanged with a Mediport catheter present There has been interval improvement of prior bilateral basilar infiltrates. Minimal stranding opacities and minimal blunting of right costophrenic angle remain at the right base mild patchy opacities remain at the left base with tiny left effusion as well. The upper lung zones are clear. Impression: Mild improvement with minimal residual basilar infiltrates and small effusions PROCEDURE INTERPRETED AT [facility] DEPARTMENT OF RADIOLOGY Final Report Signed by: Dr. Laney Monae
[2016-07-13 12:17] VITALS: BP 127/70
== END 2016-07-13 15:45 | disposition home or self-care (01) | DRG 195 ==
LOC: EDUNIT# → EDBD → N.ED 00:29 → N.EDINP 01:39 → N.2E 02:35
PROVIDERS: ADMIT Internal Medicine; ATTEND Internal Medicine

== ENCOUNTER 2017-09-26 18:57 | Inpatient (IN) ==
[2017-09-26] MEDS ORDERED: cefTRIAXone 1,000 MG in SODIUM CHLORIDE 0.9% 100 ML IV STA (20:22)
[2017-09-26] MEDS ORDERED: AZITHROMYCIN 250 MG TABLET PO STA (20:24)
[2017-09-26 20:30] LABS: Basophils % 0.2 % (0.0-0.8); Eosinophils # 0.2 10*3/uL (0.0-0.87); Eosinophils % 3.3 % (0.00-10.9); Hematocrit 33.8 VOL% (42.0-52.0); Hemoglobin 10.9 GM/DL (14.0-18.0); Immature Granulocytes % 1.2 %; Immature Granulocytes Absolute 0.07 #; Lymphocytes # 0.7 10*3/uL (1.4-4.0); Lymphocytes % 11.5 % (21.2-54.2); Mean Corpuscular HGB Conc 32.2 GM/DL (32-36); Mean Corpuscular Hemoglobin 33 PG (27-34); Mean Corpuscular Volume 101.5 FL (87-102); Mean Platelet Volume 10.6 FL (9.6-12.0); Monocytes # 0.7 10*3/uL (0.11-0.8); Monocytes % 11.2 % (1.7-12.7); Neutrophils # 4.2 10*3/uL (1.4-7.4); Neutrophils % 72.6 % (38.7-73.9); Platelet Count 144 T/CUMM (130-400); Red Blood Count 3.33 MC/CUMM (3.8-5.5); White Blood Count 5.8 T/CUMM (4-12)
[2017-09-26] MEDS ORDERED: cefTRIAXone 1,000 MG VIAL ONE (20:38)
[2017-09-26 20:52] LABS: VBG Base Excess -1.4 MEQ/L (0-4); VBG Oxygen Saturation 91.9 %; VBG PCO2 72.4 MMHG (41-51); VBG PH 7.236; VBG PO2 74.4 MMHG (17-40)
[2017-09-26 20:52] LABS: Lactic Acid 0.9 MMOL/L (0.4-2.0)
[2017-09-26 21:43] LABS: Albumin 3.2 G/DL (3.4-5.0); Bilirubin,Total 0.5 MG/DL (0.2-1.0); Potassium 4.4 MMOL/L (3.5-5.1); Total Protein 5.9 G/DL (6.4-8.3)
[2017-09-26 21:53] LABS: Apearance,Urine Slightly Hazy (Clear); Bilirubin,Urine Negative (Negative); Blood, Urine Small mg/dL (Negative); Glucose,Urine (UA) 150 mg/dL (Negative); Ketones,Urine Negative (Negative); Mucus,Urine Occasional /LPF (Occasional); Nitrite,Urine Negative (Negative); Protein,Urine 100 MG/DL; RBC,Urine 4 /HPF (0-4); Squamous Epithelial Cell,Urine Occasional /HPF (0-10); Urine Color Yellow (Yellow); Urine Specific Gravity 1.021 (1.001-1.035); Urine Urobilinogen < 2.0 EU/DL (0.2-1.0); WBC,Urine 1 /HPF (0-6)
[2017-09-26] MEDS ORDERED: ALBUTEROL/IPRATROPIUM 3 ML NEB RESP TX STA (22:29)
[2017-09-26] MEDS ORDERED: DEXTROSE 50% 25 GM/50 ML VIAL IV PRN (22:42)
[2017-09-26] MEDS ORDERED: ALBUTEROL 2.5 MG/3 ML NEB RESP TX PRN (22:42)
[2017-09-26] MEDS ORDERED: GLUCAGON 1 MG VIAL IM PRN (22:42)
[2017-09-26] MEDS ORDERED: ONDANSETRON 4 MG/2 ML VIAL IV PRN (22:42)
[2017-09-26] MEDS ORDERED: ACETAMINOPHEN 325 MG TABLET PO PRN (22:42)
[2017-09-26 23:30] LABS: PT Patient Result 10.9 SECS
[2017-09-27] MEDS: SODIUM CHLORIDE 0.9% 1,000 ML IV SCH ×3 (01:08→20:49)
[2017-09-27] MEDS: LEVOFLOXACIN INJ 750 MG in PREMIX 1 EACH IV SCH ×2 (01:08→23:13)
[2017-09-27] MEDS: ALBUTEROL/IPRATROPIUM 3 ML NEB RESP TX SCH ×4 (01:09→20:30)
[2017-09-27] MEDS: rOPINIRole 1 MG TABLET PO SCH ×2 (01:46→20:15)
[2017-09-27] MEDS: PIPERACILLIN/TAZOBACTAM 3,375 MG in SODIUM CHLORIDE 0.9% 100 ML IV SCH ×3 (02:35→18:14)
[2017-09-27 05:31] LABS: Basophils % 0.2 % (0.0-0.8); Eosinophils # 0.1 10*3/uL (0.0-0.87); Eosinophils % 1.2 % (0.00-10.9); Hematocrit 32.8 VOL% (42.0-52.0); Hemoglobin 10.6 GM/DL (14.0-18.0); Immature Granulocytes % 1.8 %; Immature Granulocytes Absolute 0.09 #; Lymphocytes # 0.3 10*3/uL (1.4-4.0); Lymphocytes % 6.6 % (21.2-54.2); Mean Corpuscular HGB Conc 32.3 GM/DL (32-36); Mean Corpuscular Hemoglobin 33 PG (27-34); Mean Corpuscular Volume 101.2 FL (87-102); Mean Platelet Volume 10.2 FL (9.6-12.0); Monocytes # 0.7 10*3/uL (0.11-0.8); Monocytes % 13.4 % (1.7-12.7); Neutrophils # 3.8 10*3/uL (1.4-7.4); Neutrophils % 76.8 % (38.7-73.9); Platelet Count 129 T/CUMM (130-400); Red Blood Count 3.24 MC/CUMM (3.8-5.5); Red Cell Distribution Width 11.9 % (9.3-17.3)
[2017-09-27 05:58] LABS: Calcium 7.5 MG/DL (8.5-10.1); Osmolality,Calculated 273.1 MOS/KG (273-304); Potassium 4.4 MMOL/L (3.5-5.1)
[2017-09-27] MEDS: INSULIN REGULAR 100 UNIT/ML SUBCUT SCH ×4 (07:43→20:14)
[2017-09-27] MEDS: MONTELUKAST 10 MG TABLET PO SCH (09:00)
[2017-09-27] MEDS: glipiZIDE 10 MG TABLET PO SCH ×2 (09:00→18:15)
[2017-09-27] MEDS: ENOXAPARIN 40 MG/0.4 ML SYRINGE SUBCUT SCH (09:01)
[2017-09-27] MEDS: GABAPENTIN 300 MG CAPSULE PO SCH ×3 (09:01→20:15)
[2017-09-27] MEDS: CARVEDILOL 25 MG TABLET PO SCH ×2 (09:01→17:49)
[2017-09-27] MEDS: MAGNESIUM OXIDE 400 MG TABLET PO SCH ×3 (09:01→20:15)
[2017-09-27] MEDS ORDERED: FUROSEMIDE 40 MG/4 ML VIAL IV ONE (15:30)
[2017-09-27] MEDS ORDERED: SUCCINYLCHOLINE 200 MG/10 ML VIAL ONE (16:00)
[2017-09-27] MEDS ORDERED: ETOMIDATE 20 MG/10 ML VIAL IV ONE (16:00)
[2017-09-27] MEDS ORDERED: PROPOFOL 1,000 MG/100 ML BOTTLE IV ONE (16:00)
[2017-09-27] MEDS: PROPOFOL 1,000 MG/100 ML BOTTLE IV SCH ×2 (16:10→22:04)
[2017-09-27 17:11] LABS: ABG Base Excess 0.1 MMOL/L (-2.5-2.5); ABG HCO3 24.6 MMOL/L (20-26); ABG Oxygen Saturation 99.8 % (95-100); ABG TCO2 29.6 MMOL/L (23-27); Allen Test Positive; Pt O2 Delivery Device Ventilator
[2017-09-27 17:13] LABS: ABG PCO2 88.2 MM HG (35-48); ABG PH 7.159 (7.35-7.45)
[2017-09-27] MEDS: INSULIN GLARGINE 100 UNIT/ML SUBCUT SCH (20:14)
[2017-09-27] MEDS: PRAVASTATIN 20 MG TABLET PO SCH (20:15)
[2017-09-28] MEDS: ALBUTEROL/IPRATROPIUM 3 ML NEB RESP TX SCH ×4 (00:34→19:45)
[2017-09-28] MEDS: PIPERACILLIN/TAZOBACTAM 3,375 MG in SODIUM CHLORIDE 0.9% 100 ML IV SCH ×3 (01:54→17:39)
[2017-09-28 04:38] LABS: ABG Base Excess 4.9 MMOL/L (-2.5-2.5); ABG HCO3 30.4 MMOL/L (20-26); ABG Oxygen Saturation 94.6 % (95-100); ABG PCO2 49.2 MM HG (35-48); ABG PH 7.409 (7.35-7.45); ABG PO2 78.8 MM HG (80-95); ABG TCO2 31.9 MMOL/L (23-27); Pt O2 Delivery Device Ventilator
[2017-09-28 05:31] LABS: Basophils % 0.2 % (0.0-0.8); Eosinophils % 0.5 % (0.00-10.9); Hematocrit 28.8 VOL% (42.0-52.0); Hemoglobin 9.5 GM/DL (14.0-18.0); Immature Granulocytes % 0.6 %; Immature Granulocytes Absolute 0.04 #; Lymphocytes # 0.5 10*3/uL (1.4-4.0); Lymphocytes % 7.4 % (21.2-54.2); Mean Corpuscular Hemoglobin 32 PG (27-34); Mean Platelet Volume 10.7 FL (9.6-12.0); Monocytes # 0.7 10*3/uL (0.11-0.8); Monocytes % 10.3 % (1.7-12.7); Neutrophils # 5.3 10*3/uL (1.4-7.4); Platelet Count 103 T/CUMM (130-400); Red Blood Count 2.94 MC/CUMM (3.8-5.5); Red Cell Distribution Width 11.9 % (9.3-17.3); White Blood Count 6.5 T/CUMM (4-12)
[2017-09-28 05:56] LABS: Albumin 2.6 G/DL (3.4-5.0); Bilirubin,Total 1.4 MG/DL (0.2-1.0); Calcium 7.3 MG/DL (8.5-10.1); Osmolality,Calculated 273.8 MOS/KG (273-304); Potassium 4.1 MMOL/L (3.5-5.1)
[2017-09-28] MEDS: PROPOFOL 1,000 MG/100 ML BOTTLE IV SCH ×3 (06:10→21:44)
[2017-09-28] MEDS: SODIUM CHLORIDE 0.9% 1,000 ML IV SCH ×2 (07:50→17:42)
[2017-09-28] MEDS: INSULIN REGULAR 100 UNIT/ML SUBCUT SCH ×3 (08:01→18:21)
[2017-09-28] MEDS: CARVEDILOL 25 MG TABLET PO SCH (08:39)
[2017-09-28] MEDS: glipiZIDE 10 MG TABLET PO SCH (08:39)
[2017-09-28] MEDS: MAGNESIUM OXIDE 400 MG TABLET PO SCH (08:40)
[2017-09-28] MEDS: MONTELUKAST 10 MG TABLET PO SCH (09:11)
[2017-09-28] MEDS: GABAPENTIN 300 MG CAPSULE PO SCH (09:12)
[2017-09-28] MEDS: ENOXAPARIN 40 MG/0.4 ML SYRINGE SUBCUT SCH (09:13)
[2017-09-28] MEDS: CARVEDILOL 6.25 MG TABLET PO SCH ×2 (14:34→17:26)
[2017-09-28] MEDS ORDERED: MAGNESIUM SULF RIDER 4 GM in PREMIX 1 EACH IV PRN (15:43)
[2017-09-28] MEDS: INSULIN GLARGINE 100 UNIT/ML SUBCUT SCH (21:07)
[2017-09-28] MEDS: PRAVASTATIN 20 MG TABLET PO SCH (21:18)
[2017-09-28] MEDS: LEVOFLOXACIN INJ 750 MG in PREMIX 1 EACH IV SCH (22:16)
[2017-09-29] MEDS: INSULIN REGULAR 100 UNIT/ML SUBCUT SCH ×4 (00:14→17:01)
[2017-09-29] MEDS: PIPERACILLIN/TAZOBACTAM 3,375 MG in SODIUM CHLORIDE 0.9% 100 ML IV SCH ×3 (00:52→16:56)
[2017-09-29] MEDS: ALBUTEROL/IPRATROPIUM 3 ML NEB RESP TX SCH ×4 (01:21→19:35)
[2017-09-29] MEDS: PROPOFOL 1,000 MG/100 ML BOTTLE IV SCH ×7 (02:45→22:25)
[2017-09-29 04:23] LABS: ABG Base Excess 6.2 MMOL/L (-2.5-2.5); ABG PCO2 43.3 MM HG (35-48); ABG PH 7.459 (7.35-7.45); ABG PO2 67.3 MM HG (80-95); ABG TCO2 28.3 MMOL/L (23-27); Allen Test Positive; Pt O2 Delivery Device Ventilator
[2017-09-29] MEDS: SODIUM CHLORIDE 0.9% 1,000 ML IV SCH ×2 (04:55→16:37)
[2017-09-29 05:58] LABS: Calcium 7.5 MG/DL (8.5-10.1); Osmolality,Calculated 288.1 MOS/KG (273-304); Potassium 3.5 MMOL/L (3.5-5.1)
[2017-09-29] MEDS: CARVEDILOL 6.25 MG TABLET PO SCH ×2 (09:14→16:56)
[2017-09-29] MEDS: ENOXAPARIN 40 MG/0.4 ML SYRINGE SUBCUT SCH (09:14)
[2017-09-29] MEDS: LEVOFLOXACIN INJ 750 MG in PREMIX 1 EACH IV SCH (22:06)
[2017-09-29] MEDS: INSULIN GLARGINE 100 UNIT/ML SUBCUT SCH (22:06)
[2017-09-29] MEDS: PRAVASTATIN 20 MG TABLET PO SCH (22:07)
[2017-09-30] MEDS: INSULIN REGULAR 100 UNIT/ML SUBCUT SCH ×5 (00:13→23:59)
[2017-09-30] MEDS: PIPERACILLIN/TAZOBACTAM 3,375 MG in SODIUM CHLORIDE 0.9% 100 ML IV SCH ×3 (00:14→16:53)
[2017-09-30] MEDS: ALBUTEROL/IPRATROPIUM 3 ML NEB RESP TX SCH ×4 (00:49→20:00)
[2017-09-30] MEDS: PROPOFOL 1,000 MG/100 ML BOTTLE IV SCH ×9 (01:30→22:48)
[2017-09-30 03:34] LABS: ABG Base Excess 6.1 MMOL/L (-2.5-2.5); ABG HCO3 29.6 MMOL/L (20-26); ABG Oxygen Saturation 98.8 % (95-100); ABG PCO2 38.6 MM HG (35-48); ABG PH 7.503 (7.35-7.45); ABG TCO2 30.8 MMOL/L (23-27)
[2017-09-30] MEDS: SODIUM CHLORIDE 0.9% 1,000 ML IV SCH ×3 (03:38→20:08)
[2017-09-30 05:53] LABS: Calcium 7.9 MG/DL (8.5-10.1); Osmolality,Calculated 292.8 MOS/KG (273-304); Potassium 3.4 MMOL/L (3.5-5.1)
[2017-09-30 05:57] LABS: Calcium 7.7 MG/DL (8.5-10.1); Osmolality,Calculated 292.8 MOS/KG (273-304); Potassium 3.4 MMOL/L (3.5-5.1); Prealbumin 8.3 MG/DL (20-40)
[2017-09-30] MEDS: CARVEDILOL 6.25 MG TABLET PO SCH ×2 (08:03→16:53)
[2017-09-30] MEDS: ENOXAPARIN 40 MG/0.4 ML SYRINGE SUBCUT SCH (08:03)
[2017-09-30] MEDS: MULTIVITAMIN LIQUID (CENTRUM) 60 ML BOTTLE PER TUBE SCH (08:03)
[2017-09-30] MEDS ORDERED: NIFEdipine 10 MG CAPSULE PER TUBE PRN (11:04)
[2017-09-30] MEDS ORDERED: cloNIDine 0.3 MG/24 HR PATCH TRANSDERM SCH (11:30)
[2017-09-30] MEDS: PIOGLITAZONE 15 MG TABLET PO SCH (12:38)
[2017-09-30] MEDS: glipiZIDE 10 MG TABLET PER TUBE SCH (16:53)
[2017-09-30] MEDS: INSULIN GLARGINE 100 UNIT/ML SUBCUT SCH (20:38)
[2017-09-30] MEDS: PRAVASTATIN 20 MG TABLET PO SCH (20:38)
[2017-09-30] MEDS: LEVOFLOXACIN INJ 750 MG in PREMIX 1 EACH IV SCH (23:41)
[2017-10-01] MEDS: ALBUTEROL/IPRATROPIUM 3 ML NEB RESP TX SCH ×4 (00:41→20:32)
[2017-10-01] MEDS: PROPOFOL 1,000 MG/100 ML BOTTLE IV SCH ×7 (01:16→20:26)
[2017-10-01] MEDS: PIPERACILLIN/TAZOBACTAM 3,375 MG in SODIUM CHLORIDE 0.9% 100 ML IV SCH ×3 (01:45→16:56)
[2017-10-01 03:29] LABS: ABG Base Excess 5.6 MMOL/L (-2.5-2.5); ABG HCO3 29.5 MMOL/L (20-26); ABG Oxygen Saturation 99.7 % (95-100); ABG PCO2 43.9 MM HG (35-48); ABG PH 7.447 (7.35-7.45); ABG TCO2 27.3 MMOL/L (23-27)
[2017-10-01 05:22] LABS: Basophils % 0.2 % (0.0-0.8); Eosinophils # 0.4 10*3/uL (0.0-0.87); Eosinophils % 3.9 % (0.00-10.9); Hemoglobin 9.1 GM/DL (14.0-18.0); Immature Granulocytes % 2.4 %; Immature Granulocytes Absolute 0.23 #; Lymphocytes # 1.2 10*3/uL (1.4-4.0); Lymphocytes % 12.3 % (21.2-54.2); Mean Corpuscular HGB Conc 32.5 GM/DL (32-36); Mean Corpuscular Hemoglobin 32 PG (27-34); Mean Corpuscular Volume 98.9 FL (87-102); Monocytes # 0.7 10*3/uL (0.11-0.8); Monocytes % 7.8 % (1.7-12.7); NRBC # 0.02 10*3/uL; Neutrophils % 73.4 % (38.7-73.9); Platelet Count 102 T/CUMM (130-400); Red Blood Count 2.83 MC/CUMM (3.8-5.5); Red Cell Distribution Width 12.2 % (9.3-17.3); White Blood Count 9.5 T/CUMM (4-12)
[2017-10-01 05:44] LABS: Calcium 8.1 MG/DL (8.5-10.1); Osmolality,Calculated 286.3 MOS/KG (273-304); Potassium 3.5 MMOL/L (3.5-5.1)
[2017-10-01] MEDS ORDERED: MAGNESIUM SULF RIDER 50 ML IV ONE (06:09)
[2017-10-01] MEDS: INSULIN REGULAR 100 UNIT/ML SUBCUT SCH ×4 (06:27→23:19)
[2017-10-01] MEDS: MAGNESIUM SULF RIDER 2 GM in PREMIX 1 EACH IV PRN (06:28)
[2017-10-01] MEDS: MULTIVITAMIN LIQUID (CENTRUM) 60 ML BOTTLE PER TUBE SCH (09:12)
[2017-10-01] MEDS: ENOXAPARIN 40 MG/0.4 ML SYRINGE SUBCUT SCH (09:12)
[2017-10-01] MEDS: glipiZIDE 10 MG TABLET PER TUBE SCH ×2 (09:12→16:58)
[2017-10-01] MEDS: PIOGLITAZONE 15 MG TABLET PO SCH (09:12)
[2017-10-01] MEDS: CARVEDILOL 6.25 MG TABLET PO SCH ×2 (09:12→17:04)
[2017-10-01] MEDS: INSULIN GLARGINE 100 UNIT/ML SUBCUT SCH (21:04)
[2017-10-01] MEDS: PRAVASTATIN 20 MG TABLET PO SCH (21:04)
[2017-10-01] MEDS: SODIUM CHLORIDE 0.9% 1,000 ML IV SCH (23:08)
[2017-10-01] MEDS: LEVOFLOXACIN INJ 750 MG in PREMIX 1 EACH IV SCH (23:18)
[2017-10-02] MEDS: PROPOFOL 1,000 MG/100 ML BOTTLE IV SCH ×5 (00:05→21:11)
[2017-10-02] MEDS: ALBUTEROL/IPRATROPIUM 3 ML NEB RESP TX SCH ×4 (00:37→20:02)
[2017-10-02] MEDS: PIPERACILLIN/TAZOBACTAM 3,375 MG in SODIUM CHLORIDE 0.9% 100 ML IV SCH ×3 (01:29→16:15)
[2017-10-02 04:21] LABS: ABG Base Excess 4.9 MMOL/L (-2.5-2.5); ABG HCO3 28.5 MMOL/L (20-26); ABG Oxygen Saturation 75.6 % (95-100); ABG PCO2 45.8 MM HG (35-48); ABG PH 7.424 (7.35-7.45); ABG PO2 41.7 MM HG (80-95); ABG TCO2 27.8 MMOL/L (23-27); Pt O2 Delivery Device Ventilator
[2017-10-02 05:40] LABS: ABG Base Excess 5.2 MMOL/L (-2.5-2.5); ABG HCO3 29.1 MMOL/L (20-26); ABG Oxygen Saturation 99.9 % (95-100); ABG PCO2 43.6 MM HG (35-48); ABG PH 7.443 (7.35-7.45); ABG TCO2 27.5 MMOL/L (23-27); Pt O2 Delivery Device Ventilator
[2017-10-02 05:47] LABS: Basophils % 0.2 % (0.0-0.8); Eosinophils # 0.5 10*3/uL (0.0-0.87); Eosinophils % 3.8 % (0.00-10.9); Hematocrit 26.6 VOL% (42.0-52.0); Hemoglobin 8.9 GM/DL (14.0-18.0); Immature Granulocytes % 3.2 %; Immature Granulocytes Absolute 0.38 #; Lymphocytes % 8.6 % (21.2-54.2); Mean Corpuscular HGB Conc 33.5 GM/DL (32-36); Mean Corpuscular Hemoglobin 33 PG (27-34); Mean Corpuscular Volume 98.5 FL (87-102); Mean Platelet Volume 11.4 FL (9.6-12.0); Neutrophils # 9.1 10*3/uL (1.4-7.4); Neutrophils % 76.2 % (38.7-73.9); Platelet Count 105 T/CUMM (130-400); Red Cell Distribution Width 12.3 % (9.3-17.3)
[2017-10-02 05:55] LABS: INR 0.9; Partial Thromboplastin Time 36.4 SECS (0-40)
[2017-10-02 06:17] LABS: Calcium 8.3 MG/DL (8.5-10.1); Osmolality,Calculated 285.3 MOS/KG (273-304); Potassium 3.9 MMOL/L (3.5-5.1)
[2017-10-02] MEDS: INSULIN REGULAR 100 UNIT/ML SUBCUT SCH ×3 (06:27→19:06)
[2017-10-02] MEDS: glipiZIDE 10 MG TABLET PER TUBE SCH ×2 (08:54→16:18)
[2017-10-02] MEDS: PIOGLITAZONE 15 MG TABLET PO SCH (09:17)
[2017-10-02] MEDS: CARVEDILOL 6.25 MG TABLET PO SCH ×2 (09:43→16:10)
[2017-10-02] MEDS: ENOXAPARIN 40 MG/0.4 ML SYRINGE SUBCUT SCH (09:43)
[2017-10-02] MEDS: MULTIVITAMIN LIQUID (CENTRUM) 60 ML BOTTLE PER TUBE SCH (09:44)
[2017-10-02] MEDS: SODIUM CHLORIDE 0.9% 1,000 ML IV SCH (09:49)
[2017-10-02 10:23] LABS: ABG Base Excess 4.8 MMOL/L (-2.5-2.5); ABG HCO3 28.8 MMOL/L (20-26); ABG Oxygen Saturation 95.6 % (95-100); ABG PCO2 49.7 MM HG (35-48); ABG PH 7.396 (7.35-7.45); ABG PO2 78.4 MM HG (80-95); ABG TCO2 28.2 MMOL/L (23-27)
[2017-10-02] MEDS: INSULIN GLARGINE 100 UNIT/ML SUBCUT SCH (20:39)
[2017-10-02] MEDS: PRAVASTATIN 20 MG TABLET PO SCH (20:39)
[2017-10-02] MEDS: LEVOFLOXACIN INJ 750 MG in PREMIX 1 EACH IV SCH (23:46)
[2017-10-03] MEDS: INSULIN REGULAR 100 UNIT/ML SUBCUT SCH ×5 (00:40→23:47)
[2017-10-03] MEDS: PIPERACILLIN/TAZOBACTAM 3,375 MG in SODIUM CHLORIDE 0.9% 100 ML IV SCH ×3 (00:41→17:18)
[2017-10-03] MEDS: ALBUTEROL/IPRATROPIUM 3 ML NEB RESP TX SCH ×4 (01:27→19:53)
[2017-10-03] MEDS: SODIUM CHLORIDE 0.9% 1,000 ML IV SCH ×2 (02:35→23:47)
[2017-10-03 05:43] LABS: Basophils % 0.2 % (0.0-0.8); Eosinophils # 0.4 10*3/uL (0.0-0.87); Eosinophils % 3.2 % (0.00-10.9); Hematocrit 24.6 VOL% (42.0-52.0); Hemoglobin 7.7 GM/DL (14.0-18.0); Immature Granulocytes % 4.1 %; Immature Granulocytes Absolute 0.49 #; Lymphocytes # 1.1 10*3/uL (1.4-4.0); Lymphocytes % 8.9 % (21.2-54.2); Mean Corpuscular HGB Conc 31.3 GM/DL (32-36); Mean Corpuscular Hemoglobin 32 PG (27-34); Mean Corpuscular Volume 102.1 FL (87-102); Monocytes % 8.3 % (1.7-12.7); Neutrophils # 9.1 10*3/uL (1.4-7.4); Neutrophils % 75.3 % (38.7-73.9); Platelet Count 101 T/CUMM (130-400); Red Blood Count 2.41 MC/CUMM (3.8-5.5); White Blood Count 12.1 T/CUMM (4-12)
[2017-10-03 06:18] LABS: Calcium 8.3 MG/DL (8.5-10.1); Osmolality,Calculated 285.3 MOS/KG (273-304); Potassium 3.7 MMOL/L (3.5-5.1)
[2017-10-03] MEDS: POTASSIUM CHLORIDE 20 MEQ/15 ML UDCUP PER TUBE PRN (06:33)
[2017-10-03 07:13] LABS: ABG Base Excess 5.2 MMOL/L (-2.5-2.5); ABG HCO3 29.2 MMOL/L (20-26); ABG Oxygen Saturation 98.2 % (95-100); ABG PCO2 55.6 MM HG (35-48); ABG PH 7.364 (7.35-7.45); ABG TCO2 29.5 MMOL/L (23-27)
[2017-10-03] MEDS: glipiZIDE 10 MG TABLET PER TUBE SCH ×2 (08:02→17:18)
[2017-10-03] MEDS: CARVEDILOL 6.25 MG TABLET PO SCH ×2 (08:02→17:19)
[2017-10-03] MEDS: PIOGLITAZONE 15 MG TABLET PO SCH (08:02)
[2017-10-03] MEDS: ENOXAPARIN 40 MG/0.4 ML SYRINGE SUBCUT SCH (08:03)
[2017-10-03] MEDS: MULTIVITAMIN LIQUID (CENTRUM) 60 ML BOTTLE PER TUBE SCH (08:03)
[2017-10-03] MEDS ORDERED: ALBUTEROL/IPRATROPIUM 3 ML NEB RESP TX PRN (08:33)
[2017-10-03 09:14] LABS: ABG Base Excess 5.6 MMOL/L (-2.5-2.5); ABG HCO3 31.1 MMOL/L (20-26); ABG Oxygen Saturation 96.4 % (95-100); ABG PCO2 51.4 MM HG (35-48); ABG PO2 92.3 MM HG (80-95); ABG TCO2 32.7 MMOL/L (23-27)
[2017-10-03 10:57] LABS: Basophils % 0.2 % (0.0-0.8); Eosinophils # 0.4 10*3/uL (0.0-0.87); Eosinophils % 3.4 % (0.00-10.9); Hematocrit 24.1 VOL% (42.0-52.0); Immature Granulocytes % 3.9 %; Lymphocytes # 0.9 10*3/uL (1.4-4.0); Mean Corpuscular HGB Conc 33.2 GM/DL (32-36); Mean Corpuscular Hemoglobin 33 PG (27-34); Mean Corpuscular Volume 99.6 FL (87-102); Mean Platelet Volume 11.4 FL (9.6-12.0); Monocytes # 1.2 10*3/uL (0.11-0.8); Monocytes % 9.6 % (1.7-12.7); Neutrophils # 9.7 10*3/uL (1.4-7.4); Neutrophils % 75.9 % (38.7-73.9); Platelet Count 104 T/CUMM (130-400); Red Blood Count 2.42 MC/CUMM (3.8-5.5); Red Cell Distribution Width 12.2 % (9.3-17.3); White Blood Count 12.7 T/CUMM (4-12)
[2017-10-03] MEDS ORDERED: SODIUM CHLORIDE 0.9% 1,000 ML IV PRN (11:44)
[2017-10-03] MEDS: INSULIN GLARGINE 100 UNIT/ML SUBCUT SCH (20:44)
[2017-10-03] MEDS: PRAVASTATIN 20 MG TABLET PO SCH (20:44)
[2017-10-03] MEDS: PROPOFOL 1,000 MG/100 ML BOTTLE IV SCH (23:46)
[2017-10-03] MEDS: LEVOFLOXACIN INJ 750 MG in PREMIX 1 EACH IV SCH (23:48)
[2017-10-04] MEDS: PIPERACILLIN/TAZOBACTAM 3,375 MG in SODIUM CHLORIDE 0.9% 100 ML IV SCH ×3 (00:13→17:25)
[2017-10-04] MEDS: ALBUTEROL/IPRATROPIUM 3 ML NEB RESP TX SCH ×3 (00:57→13:38)
[2017-10-04 05:14] LABS: Basophils % 0.3 % (0.0-0.8); Eosinophils # 0.3 10*3/uL (0.0-0.87); Eosinophils % 2.2 % (0.00-10.9); Immature Granulocytes % 5.2 %; Immature Granulocytes Absolute 0.66 #; Lymphocytes # 0.8 10*3/uL (1.4-4.0); Lymphocytes % 6.3 % (21.2-54.2); Mean Corpuscular HGB Conc 32.3 GM/DL (32-36); Mean Corpuscular Hemoglobin 32 PG (27-34); Mean Platelet Volume 11.1 FL (9.6-12.0); Monocytes # 1.3 10*3/uL (0.11-0.8); Monocytes % 10.2 % (1.7-12.7); Neutrophils # 9.6 10*3/uL (1.4-7.4); Neutrophils % 75.8 % (38.7-73.9); Red Blood Count 3.13 MC/CUMM (3.8-5.5); Red Cell Distribution Width 14.2 % (9.3-17.3); White Blood Count 12.6 T/CUMM (4-12)
[2017-10-04 05:19] LABS: Platelet Count 98 T/CUMM (130-400)
[2017-10-04 05:33] LABS: Calcium 8.3 MG/DL (8.5-10.1); Osmolality,Calculated 287.4 MOS/KG (273-304); Potassium 4.4 MMOL/L (3.5-5.1)
[2017-10-04] MEDS: INSULIN REGULAR 100 UNIT/ML SUBCUT SCH ×4 (06:00→23:57)
[2017-10-04] MEDS: MULTIVITAMIN LIQUID (CENTRUM) 60 ML BOTTLE PER TUBE SCH (08:41)
[2017-10-04] MEDS: glipiZIDE 10 MG TABLET PER TUBE SCH ×2 (08:41→17:24)
[2017-10-04] MEDS: CARVEDILOL 6.25 MG TABLET PO SCH ×2 (08:41→17:24)
[2017-10-04] MEDS: ENOXAPARIN 40 MG/0.4 ML SYRINGE SUBCUT SCH (08:41)
[2017-10-04] MEDS: PANTOPRAZOLE 40 MG VIAL IV SCH (08:42)
[2017-10-04] MEDS: SODIUM CHLORIDE 0.9% 1,000 ML IV SCH (08:57)
[2017-10-04 09:26] LABS: Band Neutrophils 1 % (0-10); Eosinophils 3 % (0-10); Lymphocytes 6 % (20-55); Segmented Neutrophils 83 % (50-85); Total Cells Counted 100
[2017-10-04] MEDS: PROPOFOL 1,000 MG/100 ML BOTTLE IV SCH (19:05)
[2017-10-04] MEDS: INSULIN GLARGINE 100 UNIT/ML SUBCUT SCH (21:26)
[2017-10-04] MEDS: PRAVASTATIN 20 MG TABLET PO SCH (21:32)
[2017-10-04] MEDS: LEVOFLOXACIN INJ 750 MG in PREMIX 1 EACH IV SCH (23:15)
[2017-10-05] MEDS: PIPERACILLIN/TAZOBACTAM 3,375 MG in SODIUM CHLORIDE 0.9% 100 ML IV SCH ×3 (00:02→17:44)
[2017-10-05] MEDS: ALBUTEROL/IPRATROPIUM 3 ML NEB RESP TX SCH ×5 (00:40→19:54)
[2017-10-05 06:25] LABS: Calcium 8.4 MG/DL (8.5-10.1); Osmolality,Calculated 283.5 MOS/KG (273-304); Potassium 3.8 MMOL/L (3.5-5.1)
[2017-10-05] MEDS: INSULIN REGULAR 100 UNIT/ML SUBCUT SCH ×4 (07:03→23:53)
[2017-10-05] MEDS: PANTOPRAZOLE 40 MG VIAL IV SCH (08:08)
[2017-10-05] MEDS: ENOXAPARIN 40 MG/0.4 ML SYRINGE SUBCUT SCH (08:08)
[2017-10-05] MEDS: MULTIVITAMIN LIQUID (CENTRUM) 60 ML BOTTLE PER TUBE SCH (08:08)
[2017-10-05] MEDS: CARVEDILOL 6.25 MG TABLET PO SCH ×2 (08:08→17:44)
[2017-10-05] MEDS: glipiZIDE 10 MG TABLET PER TUBE SCH ×2 (08:08→17:44)
[2017-10-05] MEDS: MAGNESIUM SULF RIDER 2 GM in PREMIX 1 EACH IV PRN (08:09)
[2017-10-05] MEDS: SODIUM CHLORIDE 0.9% 1,000 ML IV SCH (08:10)
[2017-10-05] MEDS ORDERED: guaiFENesin 200 MG/10 ML UDCUP PO PRN (08:59)
[2017-10-05] MEDS: methylPREDNISolone SOD SUC 40 MG/1 ML VIAL IV SCH ×2 (11:48→21:27)
[2017-10-05] MEDS ORDERED: FUROSEMIDE 40 MG/4 ML VIAL IV ONE (19:13)
[2017-10-05 19:38] LABS: ABG Base Excess 1.3 MMOL/L (-2.5-2.5); ABG HCO3 25.5 MMOL/L (20-26); ABG PO2 79.6 MM HG (80-95); ABG TCO2 29.7 MMOL/L (23-27); Allen Test Positive; Pt O2 Delivery Device Other
[2017-10-05 19:39] LABS: ABG PH 7.199 (7.35-7.45)
[2017-10-05 19:40] LABS: ABG PCO2 81.5 MM HG (35-48)
[2017-10-05] MEDS: DORNASE ALFA 2.5 MG/2.5 ML VIAL RESP TX SCH (19:54)
[2017-10-05 21:26] LABS: ABG Base Excess 2.7 MMOL/L (-2.5-2.5); ABG HCO3 26.8 MMOL/L (20-26); ABG Oxygen Saturation 93.7 % (95-100); ABG PH 7.292 (7.35-7.45); ABG PO2 70.9 MM HG (80-95); ABG TCO2 28.3 MMOL/L (23-27); Allen Test Positive; Pt O2 Delivery Device BIPAP
[2017-10-05] MEDS: PRAVASTATIN 20 MG TABLET PO SCH (21:27)
[2017-10-05] MEDS: INSULIN GLARGINE 100 UNIT/ML SUBCUT SCH (21:28)
[2017-10-05] MEDS: LEVOFLOXACIN INJ 750 MG in PREMIX 1 EACH IV SCH (23:52)
[2017-10-06] MEDS: ALBUTEROL/IPRATROPIUM 3 ML NEB RESP TX SCH ×4 (00:22→19:21)
[2017-10-06] MEDS: FUROSEMIDE 40 MG/4 ML VIAL IV SCH ×4 (01:30→20:25)
[2017-10-06] MEDS: PIPERACILLIN/TAZOBACTAM 3,375 MG in SODIUM CHLORIDE 0.9% 100 ML IV SCH ×3 (01:30→17:25)
[2017-10-06 04:02] LABS: Basophils % 0.1 % (0.0-0.8); Hematocrit 30.5 VOL% (42.0-52.0); Hemoglobin 10.1 GM/DL (14.0-18.0); Immature Granulocytes % 1.1 %; Immature Granulocytes Absolute 0.18 #; Lymphocytes # 0.4 10*3/uL (1.4-4.0); Lymphocytes % 2.2 % (21.2-54.2); Mean Corpuscular HGB Conc 33.1 GM/DL (32-36); Mean Corpuscular Hemoglobin 32 PG (27-34); Mean Corpuscular Volume 97.1 FL (87-102); Mean Platelet Volume 11.4 FL (9.6-12.0); Monocytes # 0.3 10*3/uL (0.11-0.8); Monocytes % 1.9 % (1.7-12.7); Neutrophils # 15.7 10*3/uL (1.4-7.4); Neutrophils % 94.7 % (38.7-73.9); Platelet Count 108 T/CUMM (130-400); Red Blood Count 3.14 MC/CUMM (3.8-5.5); Red Cell Distribution Width 13.2 % (9.3-17.3); White Blood Count 16.6 T/CUMM (4-12)
[2017-10-06 04:26] LABS: Calcium 8.5 MG/DL (8.5-10.1)
[2017-10-06 04:27] LABS: Osmolality,Calculated 285.2 MOS/KG (273-304); Potassium 4.6 MMOL/L (3.5-5.1)
[2017-10-06 05:13] LABS: Band Neutrophils 1 % (0-10); Lymphocytes 7 % (20-55); Segmented Neutrophils 91 % (50-85)
[2017-10-06 05:19] LABS: Giant Platelets Few; Hypochromasia 1+; Platelet Estimate Normal; Polychromasia Few
[2017-10-06 05:20] LABS: Total Cells Counted 100
[2017-10-06] MEDS: INSULIN REGULAR 100 UNIT/ML SUBCUT SCH ×3 (06:15→17:40)
[2017-10-06] MEDS: MAGNESIUM SULF RIDER 2 GM in PREMIX 1 EACH IV PRN (07:30)
[2017-10-06] MEDS: DORNASE ALFA 2.5 MG/2.5 ML VIAL RESP TX SCH ×2 (08:34→19:31)
[2017-10-06 09:06] LABS: ABG Base Excess 7.7 MMOL/L (-2.5-2.5); ABG HCO3 33.5 MMOL/L (20-26); ABG Oxygen Saturation 96.8 % (95-100); ABG PCO2 53.4 MM HG (35-48); ABG PH 7.415 (7.35-7.45); ABG PO2 90.9 MM HG (80-95); ABG TCO2 35.1 MMOL/L (23-27); Allen Test Positive; Pt O2 Delivery Device BIPAP
[2017-10-06] MEDS: methylPREDNISolone SOD SUC 40 MG/1 ML VIAL IV SCH ×2 (09:27→17:30)
[2017-10-06] MEDS: PANTOPRAZOLE 40 MG VIAL IV SCH (09:28)
[2017-10-06] MEDS: glipiZIDE 10 MG TABLET PER TUBE SCH ×2 (09:30→17:30)
[2017-10-06] MEDS: MULTIVITAMIN LIQUID (CENTRUM) 60 ML BOTTLE PER TUBE SCH (09:31)
[2017-10-06] MEDS: ENOXAPARIN 40 MG/0.4 ML SYRINGE SUBCUT SCH (09:31)
[2017-10-06] MEDS: CARVEDILOL 6.25 MG TABLET PO SCH ×2 (09:31→17:30)
[2017-10-06] MEDS: INSULIN GLARGINE 100 UNIT/ML SUBCUT SCH (20:25)
[2017-10-06] MEDS: PRAVASTATIN 20 MG TABLET PO SCH (20:25)
[2017-10-07] MEDS: LEVOFLOXACIN INJ 750 MG in PREMIX 1 EACH IV SCH (00:05)
[2017-10-07] MEDS: methylPREDNISolone SOD SUC 40 MG/1 ML VIAL IV SCH ×2 (00:14→09:00)
[2017-10-07] MEDS: INSULIN REGULAR 100 UNIT/ML SUBCUT SCH ×3 (00:29→12:06)
[2017-10-07] MEDS: ALBUTEROL/IPRATROPIUM 3 ML NEB RESP TX SCH ×3 (00:31→13:00)
[2017-10-07] MEDS: PIPERACILLIN/TAZOBACTAM 3,375 MG in SODIUM CHLORIDE 0.9% 100 ML IV SCH ×2 (01:58→09:30)
[2017-10-07] MEDS: FUROSEMIDE 40 MG/4 ML VIAL IV SCH ×2 (01:58→11:35)
[2017-10-07 03:47] LABS: Allen Test Positive; Pt O2 Delivery Device BIPAP
[2017-10-07 03:48] LABS: ABG Base Excess 8.5 MMOL/L (-2.5-2.5); ABG HCO3 32.3 MMOL/L (20-26); ABG Oxygen Saturation 96.9 % (95-100); ABG PCO2 51.5 MM HG (35-48); ABG PH 7.431 (7.35-7.45); ABG PO2 85.9 MM HG (80-95)
[2017-10-07 04:20] LABS: Basophils % 0.1 % (0.0-0.8); Hematocrit 30.6 VOL% (42.0-52.0); Hemoglobin 10.3 GM/DL (14.0-18.0); Immature Granulocytes Absolute 0.19 #; Lymphocytes # 0.4 10*3/uL (1.4-4.0); Mean Corpuscular HGB Conc 33.7 GM/DL (32-36); Mean Corpuscular Hemoglobin 32 PG (27-34); Mean Corpuscular Volume 95.3 FL (87-102); Mean Platelet Volume 11.5 FL (9.6-12.0); Monocytes # 0.6 10*3/uL (0.11-0.8); Monocytes % 3.1 % (1.7-12.7); Neutrophils # 18.6 10*3/uL (1.4-7.4); Neutrophils % 93.8 % (38.7-73.9); Platelet Count 139 T/CUMM (130-400); Red Blood Count 3.21 MC/CUMM (3.8-5.5); Red Cell Distribution Width 13.2 % (9.3-17.3); White Blood Count 19.8 T/CUMM (4-12)
[2017-10-07 04:39] LABS: Calcium 8.6 MG/DL (8.5-10.1); Osmolality,Calculated 298.8 MOS/KG (273-304); Potassium 3.7 MMOL/L (3.5-5.1)
[2017-10-07 04:58] LABS: Band Neutrophils 6 % (0-10); Lymphocytes 2 % (20-55); Segmented Neutrophils 92 % (50-85); Total Cells Counted 100
[2017-10-07] MEDS: DORNASE ALFA 2.5 MG/2.5 ML VIAL RESP TX SCH (07:05)
[2017-10-07] MEDS: PANTOPRAZOLE 40 MG VIAL IV SCH (09:00)
[2017-10-07] MEDS: MULTIVITAMIN LIQUID (CENTRUM) 60 ML BOTTLE PER TUBE SCH (09:00)
[2017-10-07] MEDS: ENOXAPARIN 40 MG/0.4 ML SYRINGE SUBCUT SCH (09:00)
[2017-10-07] MEDS: CARVEDILOL 6.25 MG TABLET PO SCH (09:00)
[2017-10-07] MEDS: glipiZIDE 10 MG TABLET PER TUBE SCH (09:00)
[2017-10-07] MEDS ORDERED: FUROSEMIDE 40 MG/4 ML VIAL IV SCH (11:00)
[2017-10-07] MEDS: POTASSIUM CHLORIDE 20 MEQ/15 ML UDCUP PER TUBE PRN (12:08)
[2017-10-07 15:58] VITALS: BP 108/60
== END 2017-10-07 16:15 | DRG 870 ==
LOC: N.ED 18:57 → N.EDINP 22:36 → SUATTDRO 22:36 → N.CC 22:36
PROVIDERS: ADMIT Internal Medicine; ATTEND Family Medicine